=== PATIENT | female | born 1940 | race Caucasian/White ===

== ENCOUNTER 2017-03-10 14:34 | Emergency (ER) | payer OTHER, MEDICARE ==
--- NOTE | 2017-03-10 14:44 | PDOC ---
Rapid Medical Evaluation Time Seen by Provider: 03/10/17 14:37 Medical Evaluation: 03/10/17 14:39 o I have performed a brief in-person evaluation of this patient. o The patient presents with a chief complaint of: Lower Back pain o Pertinent physical exam findings: Sudden onset of lower back pain yesterday. Pain was 10/10 initially, now 5/10. Denies trauma. Denies lifting anything heavy. Described as a "spasm'. H/O CT, Breast CA, spinal stenosis, arthritis. Denies any radiating pain, localized to the lower back. No bowel or bladder difficulty, no neuro or sensory deficit. No saddle anesthesia. o I have ordered the following: UA/ C&S o The patient will proceed to the ED for further evaluation. 03/10/17 14:43
[2017-03-10 14:47] VITALS: BP 141/73; PULSE 65; TEMP 97.7; BMI 23.4
[2017-03-10] MEDS ORDERED: KETOROLAC TROMETHAMINE 30 MG/1 ML VIAL IM ONE (15:22)
[2017-03-10 15:27] LABS: URINE APPEARANCE CLEAR; URINE BILIRUBIN NEGATIVE (NEGATIVE); URINE BLOOD NEGATIVE (NEGATIVE); URINE COLOR STRAW; URINE GLUCOSE (UA) NEGATIVE (NEGATIVE); URINE KETONE NEGATIVE (NEGATIVE); URINE LEUK ESTERASE NEGATIVE (NEGATIVE); URINE NITRITE NEGATIVE (NEGATIVE); URINE PROTEIN NEGATIVE (NEGATIVE); URINE UROBILINOGEN NEGATIVE E.U./dl (0.2-1.0)
[2017-03-10] MEDS ORDERED: KETOROLAC TROMETHAMINE 30 MG/1 ML VIAL ONE (15:29)
--- NOTE | 2017-03-10 15:46 | PDOC ---
History of Present Illness - General Chief Complaint: Back Pain Stated Complaint: BACK PAIN Time Seen by Provider: 03/10/17 14:37 History Source: Patient - History of Present Illness Occurred: reports: yesterday Severity: reports: moderate Pain Location: reports: back Past History - Past Medical History Allergies/Adverse Reactions: Allergies Allergy/AdvReac Type Severity Reaction Status Date / Time No Known Allergies Allergy Verified 03/10/17 14:41 Home Medications: Ambulatory Orders Amlodipine Besylate [Norvasc -] 5 mg PO DAILY 03/10/17 Aspirin [ASA -] 81 mg PO DAILY 03/10/17 Lidocaine 5% Patch [Lidoderm Patch -] 1 patch TP DAILY #7 patch 03/10/17 Vit D3-Vit K/Berberine/Hops [Ostera Tablet] 1 each PO ASDIR 03/10/17 Cancer: Yes (BREAST CA) Cardiac Disorders: Yes (STENT) - Surgical History Cardiac Surgery: Yes (STENT) - Psycho/Social/Smoking Cessation Hx Anxiety: No Suicidal Ideation: No Smoking History: Former smoker Have you smoked in the past 12 months: No If you are a former smoker, when did you quit?: 45 YRS AGO Information on smoking cessation initiated: No Hx Alcohol Use: Yes (OCCASIONALLY) Drug/Substance Use Hx: No Review of Systems - Review of Systems Constitutional: No: Chills, Fever ABD/GI: No: Nausea, Vomiting : No: Burning, Dysuria, Frequency, Flank Pain, Hematuria Musculoskeletal: Yes: Back Pain Neurological: No: Numbness, Tingling, Weakness *Physical Exam - Vital Signs Last Vital Signs Temp Pulse Resp BP Pulse Ox 97.7 F 65 16 141/73 97 03/10/17 14:38 03/10/17 14:38 03/10/17 14:38 03/10/17 14:38 03/10/17 14:38 - Physical Exam General Appearance: Yes: Appropriately Dressed. No: Apparent Distress HEENT: positive: Normal Voice Neck: positive: Supple Respiratory/Chest: negative: Respiratory Distress Gastrointestinal/Abdominal: positive: Soft. negative: Tender Musculoskeletal: positive: Vertebral Tenderness. negative: CVA Tenderness Extremity: positive: Normal Inspection Integumentary: positive: Dry, Warm Neurologic: positive: Fully Oriented, Alert, Normal Mood/Affect ED Treatment Course - RADIOLOGY Radiology Studies Ordered: Category Date Time Status SPINE-LUMBAR SACRAL [RAD] Stat Radiology 03/10/17 15:21 Ordered - Medications Given in the ED: ED Medications Discontinued Medications Generic Name Dose Route Start Last Admin Trade Name Veronica PRN Reason Stop Dose Admin Ketorolac Tromethamine 30 mg 03/10/17 15:22 03/10/17 15:32 Toradol Injection - IM 03/10/17 15:23 30 mg ONCE ONE Administration Medical Decision Making - Medical Decision Making 03/10/17 15:36 77-year-old female, history of CAD with one stent, breast cancer status post lumpectomy, chemotherapy in the past here with lower back pain that started suddenly yesterday while standing and doing laundry. States pain was a sharp pain, constant and radiated to bilateral buttocks area. Took some Tylenol with minimal relief. States pain improved, but worsened again this a.m. Denies extremity weakness, saddle anesthesia, bowel or bladder incontinence, dysuria, hematuria, abd pain, nausea, vomiting, fever or chills. Patient reports that she has had similar pain in the past that usually resolves after doing some stretching exercises. States she was told she had "arthritis" to spine on prior imaging See exam Recurrent LBP No neuro sxs No infectious sxs No unexplained florinda loss Well kristin and in NAD +ttp to mid LS spine Ambulating in ED ?MSK, r/o pathologic fx given cancer hx -pain control -XR 03/10/17 16:18 Spondylolisthesis with disc space narrowing on x-ray. Patient improved with meds. Continue with pain control and PMD follow-up *DC/Admit/Observation/Transfer Diagnosis at time of Disposition: Back pain Qualifiers: Back pain location: low back pain Chronicity: acute Back pain laterality: bilateral Sciatica presence: without sciatica Qualified Code(s): M54.5 - Low back pain - Discharge Dispostion Disposition: HOME Condition at time of disposition: Improved - Prescriptions Prescriptions: Lidocaine 5% Patch [Lidoderm Patch -] 1 patch TP DAILY #7 patch - Patient Instructions Printed Discharge Instructions: DI for Low Back Pain Additional Instructions: Your XR shows some degenerative changes. Continue pain meds as needed and follow-up with your PMD
--- NOTE | 2017-03-10 18:34 | PDOC ---
*Physical Exam - Vital Signs Last Vital Signs Temp Pulse Resp BP Pulse Ox 97.7 F 65 16 141/73 97 03/10/17 14:38 03/10/17 14:38 03/10/17 14:38 03/10/17 14:38 03/10/17 14:38 ED Treatment Course - ADDITIONAL ORDERS Additional order review: Laboratory Results 03/10/17 14:55 Urine Color Straw Urine Appearance Clear Urine pH 7.0 Urine Protein Negative Urine Glucose (UA) Negative Urine Ketones Negative Urine Blood Negative Urine Nitrite Negative Urine Bilirubin Negative Urine Urobilinogen Negative Ur Leukocyte Esterase Negative - RADIOLOGY Radiology Studies Ordered: Category Date Time Status SPINE-LUMBAR SACRAL [RAD] Stat Radiology 03/10/17 15:21 Completed - Medications Given in the ED: ED Medications Discontinued Medications Generic Name Dose Route Start Last Admin Trade Name Veronica PRN Reason Stop Dose Admin Ketorolac Tromethamine 30 mg 03/10/17 15:22 03/10/17 15:32 Toradol Injection - IM 03/10/17 15:23 30 mg ONCE ONE Administration *DC/Admit/Observation/Transfer Diagnosis at time of Disposition: Back pain Qualifiers: Back pain location: low back pain Chronicity: acute Back pain laterality: bilateral Sciatica presence: without sciatica Qualified Code(s): M54.5 - Low back pain - Discharge Dispostion Disposition: HOME Condition at time of disposition: Improved - Prescriptions Prescriptions: Lidocaine 5% Patch [Lidoderm Patch -] 1 patch TP DAILY #7 patch Tramadol HCl 50 mg PO Q6H #15 tablet MDD 200 mg - Referrals - Patient Instructions Printed Discharge Instructions: DI for Low Back Pain Additional Instructions: Your XR shows some degenerative changes. Continue pain meds as needed and follow-up with your PMD - Post Discharge Activity
== END 2017-03-10 16:24 | disposition home or self-care (01) ==
LOC: JER 14:34 → JERFT 14:34
PROC: 3E0233Z Introduction of Anti-inflammatory into Muscle, Percutaneous Approach (ICD-10-PCS; principal; 2017-03-10)
DX: M54.5 Low back pain (principal); I25.10 Atherosclerotic heart disease of native coronary artery without angina pectoris; Z95.5 Presence of coronary angioplasty implant and graft; Z79.82 Long term (current) use of aspirin; Z87.891 Personal history of nicotine dependence; Z85.3 Personal history of malignant neoplasm of breast; Z92.21 Personal history of antineoplastic chemotherapy
CPT/HCPCS: 72100-TC; 81003; 87086; 96372; 99281-25

== ENCOUNTER 2017-07-29 07:15 | Day surgery (SDC) | payer OTHER, MEDICARE ==
[2017-07-27 11:42] VITALS: BMI 22.9
[2017-07-29] MEDS ORDERED: ROPIVACAINE HCL 0.5% 30ML VIAL ONE (08:30)
[2017-07-29] MEDS ORDERED: DEXAMETHASONE SOD PHOSPHATE/PF 10 MG/ML SDV ONE (08:30)
[2017-07-29] MEDS ORDERED: MIDAZOLAM HCL 2 MG/2 ML SINGLE DOSE VIAL ONE ×2 (08:31)
--- NOTE | 2017-07-29 09:10 | HP ---
Satellite [facility] - Chief Complaint Chief Complaint: left shoulder pain - Past Medical History Allergies/Adverse Reactions: Allergies Allergy/AdvReac Type Severity Reaction Status Date / Time No Known Allergies Allergy Verified 07/29/17 07:48 - Current Medications Current Medications: Home Medications Medication Instructions Recorded Amlodipine Besylate [Norvasc -] 5 mg PO DAILY 03/10/17 Aspirin [ASA -] 81 mg PO DAILY 03/10/17 Vit D3-Vit K/Berberine/Hops 1 each PO ASDIR 03/10/17 [Ostera Tablet] Acetaminophen 500 mg PO PRN PRN 07/27/17 Atorvastatin Ca [Lipitor] 40 mg PO HS 07/27/17 Hydrocodone/Acetaminophen [[place] 1 each PO Q6H PRN #40 tablet MDD 4 07/29/17 5-325 Tablet] Satellite Physical Exam - Physical Examination Vital Signs: Vital Signs Period Temp Pulse Resp BP Sys/Finnegan Pulse Ox Last 24 Hr 97.8 F 62 16 155/80 100 General Appearance: Well Nourished, Well Developed, Alert & Oriented x3 ENT: Clear Lung: Normal air movement Heart: Regular rate & rhythm Extremities: Other (left shoulder- + ttp, decr rom, + neer, + infante, nvi MRI + impingement, AC jt OA, rc tendinopathy) Neurological: Intact, Alert, Oriented Satellite Impression/Plan - Impression/Plan Impression: left shoulder impingement, OA Operative Procedure: left shoulder arthroscopy SAD Date to be Performed: 07/29/17
[2017-07-29] MEDS ORDERED: ceFAZolin SODIUM 1 GM VIAL IVPB ONE (09:58)
--- NOTE | 2017-07-29 10:50 | OP ---
Operative Note - Note: Operative Date: 07/29/17 ([facility]) Pre-Operative Diagnosis: left shoulder impingement Operation: left shoulder arthroscopy with MADELYN RIVAS Post-Operative Diagnosis: Same as Pre-op Surgeon: Santhosh Watkins Anesthesiologist/ROVING DEPARTMENT SUPERVISOR: Lemuel Hodgson Anesthesia: General, Local Specimens Removed: shavings Estimated Blood Loss (mls): 5 Operative Report Dictated: Yes
--- NOTE | 2017-07-29 11:35 | OP ---
DATE OF OPERATION: 07/29/2017 PREOPERATIVE DIAGNOSIS: Right shoulder subacromial impingement and adhesive capsulitis. POSTOPERATIVE DIAGNOSIS: Right shoulder subacromial impingement and adhesive capsulitis. PROCEDURE: 1. Right shoulder arthroscopy. 2. Subacromial decompression. 3. Manipulation under anesthesia. DRAINS: None. COMPLICATIONS: None. SPECIMEN: Arthroscopic shaving. SURGEON: Santhosh Bateman M.D. LOCKSTITCH SHOULDER JOINER: ANESTHESIA: General with interscalene block and MAC anesthesia. ANESTHESIOLOGIST: BLOOD LOSS: Minimal. BLOOD GIVEN: None. FLUID REPLACEMENT: 500 mL. INDICATIONS: The patient is a 77-year-old female with a preoperative diagnosis of significant left shoulder pain, partial rotator cuff tear, AC joint arthritis and subacromial impingement and adhesive capsulitis. After understanding the potential risks, complications, alternatives and benefits of surgery versus nonsurgical treatment, the patient elected to undergo this procedure. PROCEDURE: The patient was brought to the operating room and placed on the operating table in supine position. She was given 1 g of Ancef and a left interscalene block was performed. MAC anesthesia was induced. She was placed into the deep beach chair position with ample padding throughout. The patient's left upper extremity was prepped and draped in a sterile fashion. The bony landmarks marked out with a marking pen. Posterior portal was established. The patient was seen to have osteoarthritis of the glenohumeral joint and a small partial undersurface tear. Next our attention was turned to the subacromial space. The patient had a lot of adhesive inflammatory bursitis. A latera port was established with a spinal needle. A No. 11 scalpel blade was used to cut through the skin and a Green cannula introduced into the subacromial space. Using the ArthroCare wand I did an extensive debridement/ soft tissue bursectomy. This revealed a large subacromial and large subclavicular spur. Photographs were taken. Both were taken down with a 5.5-mm oval ernst and then fine tuned in reverse. The shaver was reintroduced into the subacromial space. All debris was removed. It was quite flat with a lot space. The left shoulder was put through a full range of motion. There was no point of impingement. The top surface of the rotator cuff was directly visualized and although there was some fraying, there was no tear. The area was copiously irrigated and washed out. All excess saline was removed. All instrumentation then removed. The arthroscopy portals were closed with 3-0 nylon sutures. The area was washed and dried and covered with Aquacel dressing. Total operative time was 45 minutes. The patient was taken down out of the beach chair position, sling was applied. She was brought to the ambulatory recovery room in stable condition. There were no complications during the case. Before we prepped and draped but after the patient as on the table, I did a manipulation under anesthesia. She was tight in both forward flexion and abduction and I was able to get her from about 115 degrees to 140 degrees of each. SANTHOSH BATEMAN M.D. [id number]
[2017-07-29 13:45] VITALS: TEMP 97.7
[2017-07-29 14:23] VITALS: BP 132/58; PULSE 78
--- NOTE | 2017-07-30 12:40 | PATH ---
Surgical Pathology Report Patient Name: MERCEDES SPARROW Med. Rec. #: [id number] /Age/Gender: 1940 (Age: 77) / F Account: [id number] Location: [facility] SURGICAL Taken: 07/29/2017 Received: 07/29/2017 Reported: 07/30/2017 Physicians: Santhosh Watkins M.D. Specimen(s) Received LEFT SHOULDER SHAVINGS Clinical History Left shoulder pain Final Diagnosis LEFT SHOULDER, ARTHROSCOPIC SHAVING: PORTIONS OF SYNOVIUM, CARTILAGE, SKELETAL MUSCLE AND BONE CONSISTENT WITH ARTHROSCOPIC SHAVINGS. Electronically Signed Drew Roman M.D. Gross Description Received in formalin, labeled "left shoulder shavings," is a 4.2 x 3.3 x 0.4 cm. aggregate of garza-yellow soft tissue fragments. A quality control representative portion is submitted in one cassette. 07/29/201707/29/2017
== END 2017-07-29 14:24 | disposition home or self-care (01) ==
LOC: JASU-SURG 07:15
PROVIDERS: ATTEND Orthopaedic Surgery
PROC: 0RBJ4ZZ Excision of Right Shoulder Joint, Percutaneous Endoscopic Approach (ICD-10-PCS; principal; 2017-07-29 09:00)
DX: M75.41 Impingement syndrome of right shoulder (principal); M75.01 Adhesive capsulitis of right shoulder
CPT/HCPCS: 88304-TC